=== PATIENT | male | born 1945 | race Caucasian/White ===

== ENCOUNTER 2017-03-28 09:03 | Emergency (ER) | payer MEDICARE, OTHER ==
[2017-03-28] MEDS ORDERED: KETOROLAC TROMETHAMINE 60 MG/2 ML VIAL IM ONE ×2 (10:15→10:31)
--- NOTE | 2017-03-28 10:16 | ERNOTE ---
Abdominal HPI - Narrative Date of Service: 03/28/17 - General Chief Complaint: Abdominal Pain Time Seen by Provider: 03/28/17 10:05 Source: patient, family, RN notes reviewed Exam Limitations: no limitations - Immun/Allergies/Home Medications Immunizatons: IMMUNIZATION HX Immunizations Up to Date Yes Allergies/Adverse Reactions: Allergies No Known Allergies Allergy (Verified 03/28/17 09:28) Home Medications: HOME MEDICATIONS Ascorbic Acid [Vitamin C] 1,000 mg PO DAILY 03/28/17 [Last Taken Unknown] Aspirin [Aspirin Enteric Coated] 81 mg PO DAILY 03/28/17 [Last Taken Unknown] Atorvastatin Calcium [Lipitor] 40 mg PO HS 03/28/17 [Last Taken Unknown] Benazepril/Hydrochlorothiazide [Benazepril-Hctz 5-6.25 mg Tab] 1 each PO DAILY 03/28/17 [Last Taken Unknown] Calc/D3/Mag/Zn/Daily/Sidney/Naper [Calcium 600 mg Plus Vit D Tab] 1 each PO DAILY 03/28/17 [Last Taken Unknown] Carvedilol [Coreg] 25 mg PO BID 03/28/17 [Last Taken Unknown] Multivitamin [Multivitamins] 1 each PO DAILY 03/28/17 [Last Taken Unknown] Omeprazole [Prilosec] 20 mg PO DAILY 03/28/17 [Last Taken Unknown] - History of Present Illness Narrative: 72 y/o male ambulatory to the ED for abdominal pain that began about a week ago. The pain began in the epigastric region but is now radiating throughout the abdomen. He also reports bloating and a poor appetite. He had been constipated, but he took Milk of Magnesia and feels that this resolved. He has a history of GERD and takes omeprazole. He reports that the pain does not feel like it is related to this. He has not taken anything for pain today, nor has he had anything to eat or drink. Timing: constant, getting worse Quality: moderate, dullness Activities at Onset: none Prior Treatment: Absent: recently seen, currently on antibiotics Review of Systems - Review of Systems Constitutional: Present: malaise. Absent: recent illness, fever, chills EYE: Present: no symptoms reported ENT: Present: no symptoms reported Respiratory: Absent: shortness of breath, cough Cardiology: Absent: chest pain, palpitations, edema Gastrointestinal/Abdominal: Present: nausea, abdominal pain, eating less, drinking less. Absent: vomiting, diarrhea, constipation Genitourinary: Absent: dysuria, hematuria Musculoskeletal: Absent: back pain, muscle pain Skin: Absent: rash, lesions Neurological: Absent: headache, dizziness/light-headedness Endocrine: Present: no symptoms reported Hematologic/Lymphatic: Present: no symptoms reported Psych: Present: no symptoms reported - Patient's Past Medical History Patient History - Medical: GERD, Other Patient History - Cardiac/Respiratory: Hypertension, Hyperlipidemia Patient History - Cancer: No Hx of Cancer Patient History - Surgical Procedures: Hernia Repair Patient History - Other: None - Social History Living Situations: spouse Psych History: No pertinent hx Smoking Status: Never smoker Alcohol Use: none Drug Use: none - Immunizations Immunizations Up to Date: Yes Physical Exam - Physical Exam General Appearance: Present: wd/wn, alert, no apparent distress Neck: Present: normal inspection, nontender, supple, full range of motion Respiratory: Present: no respiratory distress, normal breath sounds, no accessory muscle use, lungs clear Cardiovascular/Chest: Present: regular rate, rhythm, no murmur Gastrointestinal/Abdominal: Present: normal bowel sounds, soft, tenderness - mild, diffuse, distended - mild, bloated appearing. Absent: rebound, mass Back Exam: Present: normal inspection, no CVA tenderness Extremity Exam: Present: normal inspection, no edema Neurological Exam: Present: alert, oriented, normal mood/affect, no motor/ sensory deficits Skin Exam: Present: normal color, warm/dry ED Progress - Results and Orders Patient's Lab Results:: I have reviewed the patient's lab results. - Vital Signs Patient's Vital Signs:: I have reviewed the patient's vital signs. Vital Signs: Vital Signs 03/28/17 09:08 Temperature 36.4 C L Pulse Rate 77 Respiratory 12 Rate Blood Pressure 138/108 O2 Sat by Pulse 93 Oximetry - X-Ray X-Ray #1 X-Ray: abdomen Interpretation: Reviewed by me X-ray Comments: Technique: Supine and upright views the abdomen utilizing 4 total images. Findings: Moderate fecal retention seen throughout the colon. No dilation of the colon. Some minimal air-filled loops of distal small bowel which are nondilated. No evidence to suggest obstruction. No free air or free fluid. Postsurgical change in the lower lumbar spine with laminectomy and posterior fusion changes identified. Degenerative change throughout the remaining spine, SI joints and bilateral hips IMPRESSION: MODERATE FECAL RETENTION WITHOUT EVIDENCE FOR OBSTRUCTION OR ACUTE INTRA-ABDOMINAL PROCESS. Electronically signed by Jevon Mathis D.O.. - Progress/Reassessment Chief Complaint: Abdominal Pain Progress:: Improved Departure - Departure Clinical Impression: Constipation by delayed colonic transit Disposition: Home Follow Up Needed Condition: Stable Instructions: Constipation, Adult, [id number] Additional Instructions: Drink magnesium citrate when you get home Start a fiber supplement Drink more water Follow up if symptoms persist or worsen
[2017-03-28 10:37] LABS: Urine Bilirubin Negative (NEGATIVE); Urine Blood Negative /ul (NEGATIVE); Urine Ketone Negative (NEGATIVE); Urine Nitrite Negative (NEGATIVE); Urine Protein Negative (NEGATIVE); Urine Urobilinogen Normal (NORMAL)
[2017-03-28 10:37] LABS: Hematocrit 43.3 % (42.0-52.0); Hemoglobin 14.4 gm/dL (13.5-18.0); Mean Cell Volume 88.2 fl (78-100); Mean Corpuscular Hemoglobin 29.3 pg (27-31); Mean Corpuscular Hgb Conc 33.3 g/dl (32-36); Mean Platelet Volume 9.4 fl (6.0-9.5); Neutrophil # 5.4 K/mm3 (1.3-6.0); Platelet Count 183 K/mm3 (150-450); Red Blood Count 4.91 M/mm3 (4.7-6.0); Red Cell Distribution Width 14.2 % (11.5-14.0); White Blood Count 8.1 K/mm3 (4.0-10.5)
[2017-03-28 10:49] LABS: Urine Appearance Clear; Urine Bacteria None Seen; Urine Color Yellow; Urine RBC None Seen /hpf (0-5); Urine WBC None Seen /hpf (0-5)
[2017-03-28 10:49] LABS: Albumin * 3.7 gm/dl (3.4-5.0); Anion Gap 8.9 mmol/L (6.8-13.8); BUN/Creatinine Ratio 12.2 (9.0-21.6); Bilirubin, Total 0.9 mg/dL (0.0-1.1); Ca. Corrected For Albumin 9.2 mg/dL (8.4-10.2); Calcium * 9.3 mg/dL (7.9-10.9); Carbon Dioxide 31.4 mmol/L (24-32.6); Potassium 4.3 mmol/L (3.4-4.6); Total Protein 7.4 gm/dL (6.2-8.2)
[2017-03-28 11:35] VITALS: BP 158/97
[2017-03-28] MEDS ORDERED: MAGNESIUM CITRATE 300 ML BTL PO ONE (11:46)
[2017-03-28] MEDS ORDERED: MAGNESIUM CITRATE 300 ML BTL ONE (11:47)
== END 2017-03-28 11:52 | disposition home or self-care (01) ==
LOC: ER 09:03
DX: K59.01 Slow transit constipation (principal); K21.9 Gastro-esophageal reflux disease without esophagitis; I10 Essential (primary) hypertension; E78.5 Hyperlipidemia, unspecified